=== PATIENT | female | born 1970 | race Two or more races ===

== ENCOUNTER 2018-10-27 17:10 | Inpatient (IN) | payer MEDICAID, OTHER ==
--- NOTE | 2018-10-27 17:46 | EDPHY ---
HPI/HX/ROS/PE/MDM Narrative: CHIEF COMPLAINT: Chest pressure HISTORY OF PRESENT ILLNESS: The patient is a Afghan-speaking 47 y/o female with a history of acid reflux who arrives with her complaining of almost persistent chest pressure since Wednesday, 2 days ago. Over the last 2 days she has had chest discomfort the majority of the time, although there have been some periods which she has been pain-free. She recently returned from a trip to [facility] on Wednesday, which was a 12-hour drive for each leg of the journey. Upon returning home, she noticed a swollen varicose vein on her left medial thigh that has since resolved, but concerned her for a blood clot. Her left lower leg seems slightly swollen to her now. On the same day she returned home she also developed chest pressure that has remained almost constant since onset with only a few brief dips in pain. She rates it at a 7/10 in severity currently and describes radiation to her back. Nothing seems to make her pain better or worse. This pain feels distinct from her episodes of reflux, which are usually lower in her chest and burning and sharp in sensation. She has been generally fatigued over the last day as well and currently feels anxious. She denies history of hypertension, diabetes, hypercholesterolemia, smoking history, or cardiac disease nonsmoker. She mentions her menstrual period is late this month. She takes a daily baby aspirin. No fever, chills, shortness of breath, palpitations, vomiting, diarrhea, urinary complaints, headache, lightheadedness. REVIEW OF SYSTEMS: Aside from elements discussed in the HPI, a comprehensive 10-point review of systems was reviewed and is negative. PAST MEDICAL HISTORY: Reflux - omeprazole, varicose veins. Family history of early coronary artery disease. SOCIAL HISTORY: Afghan-speaking. Nonsmoker, no marijuana use, no alcohol use. at bedside. VITAL SIGNS: Reviewed by me GENERAL: Well-developed, well-nourished, holding her upper chest. Reports this where the discomfort is. HEENT: Atraumatic. Eyes: No icterus, no injection. Mouth: moist mucous membranes. No erythema or lesions. Neck: supple with no adenopathy. LUNGS: Clear to auscultation bilaterally, no wheezes, rhonchi or rales. CARDIAC: Regular rate and rhythm, no rubs, murmurs or gallops. CHEST: Mild tenderness over sternum. Breath sounds are clear bilaterally. ABDOMEN: Soft, nontender, nondistended, bowel sounds normal. BACK: No CVA tenderness. EXTREMITIES: No trauma. No edema. Left lower leg increased circumference compared to right. Range of motion is normal throughout. NEURO: Alert and oriented, grossly nonfocal. SKIN: Warm and dry, no rash. PSYCHIATRIC: Normal mentation, no agitation. Portions of this note were transcribed by a medical coding instructor. I personally performed a history, physical exam, medical decision making, and confirmed accuracy of information the transcribed note. ED Course: This is a 47 y/o female with a history of acid reflux who presents with a two- day history of chest pressure following a long drive between [place], [place], and here earlier this week. She is well-appearing on exam and not tachycardic nor hypoxemic. Patient does have a family history a court her artery disease. Plan for IV, labs, EKG, chest x-ray, left leg US. GI cocktail for pain. The 12 lead EKG was interpreted by myself. Sinus mechanism. Flipped T wave in lead III. See hard copy and/or "tracemaster" electronic copy for interpretation. Compared with [facility] EKG patient brought with her, there was a downsloping ST segment in V5 on their EKG earlier today. Chest x-ray: negative. Left leg US: No DVT. POC Troponin is negative. HEART SCORE: History: 1 EK Age: 1 Risk Factors: 0 Troponin: 0 The patient has a heart score 3. History was deemed moderately suspicious secondary to the complaints of pressure the substernal region. Thw EKG received a score of 1 secondary to nonspecific repolarization abnormalities with T-wave inversions in lead [address] depression lead V4 on the EKG from [facility]. Patient's age at 47 received a score of 1. (Note: On the history obtained from the admitting service, the patient does have a family history of coronary artery disease which would increase her risk factors to 1 and increase the heart score to 4.) Patient had a negative troponin in the emergency department. Chest x-ray was normal. D-dimer was negative. Ultrasound left leg demonstrates no DVT. Patient had minimal relief with a GI cocktail. Patient will be observed in the emergency department for 4 hr to have a repeat troponin and EKG. 2132: Repeat EKG is similar to prior. Repeat POC troponin is negative. Reassessed patient and discussed findings. She now tells me she had an echocardiogram in September and was told they wanted a follow up stress test, which she has not yet done. She also has an upcoming shoulder surgery next week. 2214: Consulted with Dr. Barrera, cardiology. He recommends admission for stress test. The patient was seen in the emergency department by Dr. Yadira Delgado. At this time, the patient's positive family history was identified. Patient will be admitted to the hospital for chest discomfort, rule out acute coronary syndrome. MDM: After history and physical examination, the differential for chest pain was considered, including but not limited to, myocardial ischemia, acute coronary syndrome, pulmonary embolus, chest wall pain, pleural inflammation, GI causes, and pulmonary infectious causes. - Data Points Imaging Results: Imaging Impressions Chest X-Ray 10/27/18 17:50 Impression: 1. Clear lungs. No acute process. 2. Minimal degenerative disk disease unchanged. Extremity Venous Study 10/27/18 17:51 Impression: No evidence of deep vein thrombosis. Findings discussed with Deirdre Rick MD 10/27/2018 at 18:22. Imaging: Discussed imaging studies w/ call out clerk Radiologist, I viewed and interpreted images myself Laboratory Results: Laboratory Results 10/27/18 17:35 10/27/18 17:35 10/27/18 10/27/18 10/27/18 21:35 17:43 17:35 WBC RBC Hgb Hct MCV MCH MCHC RDW Plt Count MPV Neut % (Auto) Lymph % (Auto) Cataño % (Auto) Eos % (Auto) Baso % (Auto) Nucleat RBC Rel Count Absolute Neuts (auto) Absolute Lymphs (auto) Absolute Monos (auto) Absolute Eos (auto) Absolute Basos (auto) Absolute Nucleated RBC Immature Gran % Immature Gran # D-Dimer Sodium Potassium Chloride Carbon Dioxide Anion Gap BUN Creatinine Estimated GFR Glucose Calcium POC Troponin I 0.00 ng/mL ng/mL 0.00 ng/mL ng/mL (0.00-0.08) (0.00-0.08) Lipase Beta HCG, Qual NEGATIVE 10/27/18 10/27/18 10/27/18 17:35 17:35 17:35 WBC 6.93 10^3/uL 10^3/uL (3.80-9.50) RBC 4.61 10^6/uL 10^6/uL (4.18-5.33) Hgb 13.4 g/dL g/dL (12.6-16.3) Hct 40.0 % % (38.0-47.0) MCV 86.8 fL fL (81.5-99.8) MCH 29.1 pg pg (27.9-34.1) MCHC 33.5 g/dL g/dL (32.4-36.7) RDW 14.7 % % (11.5-15.2) Plt Count 267 10^3/uL 10^3/uL (150-400) MPV 11.5 fL fL (8.7-11.7) Neut % (Auto) 64.0 % % (39.3-74.2) Lymph % (Auto) 26.0 % % (15.0-45.0) Cataño % (Auto) 7.9 % % (4.5-13.0) Eos % (Auto) 1.3 % % (0.6-7.6) Baso % (Auto) 0.7 % % (0.3-1.7) Nucleat RBC Rel Count 0.0 % % (0.0-0.2) Absolute Neuts (auto) 4.43 10^3/uL 10^3/uL (1.70-6.50) Absolute Lymphs (auto) 1.80 10^3/uL 10^3/uL (1.00-3.00) Absolute Monos (auto) 0.55 10^3/uL 10^3/uL (0.30-0.80) Absolute Eos (auto) 0.09 10^3/uL 10^3/uL (0.03-0.40) Absolute Basos (auto) 0.05 10^3/uL 10^3/uL (0.02-0.10) Absolute Nucleated RBC 0.00 10^3/uL 10^3/uL (0-0.01) Immature Gran % 0.1 % % (0.0-1.1) Immature Gran # 0.01 10^3/uL 10^3/uL (0.00-0.10) D-Dimer 0.38 ug/mLFEU ug/mLFEU (0.00-0.50) Sodium 140 mEq/L mEq/L (135-145) Potassium 3.6 mEq/L mEq/L (3.5-5.2) Chloride 110 mEq/L mEq/L (97-110) Carbon Dioxide 22 mEq/l mEq/l (22-31) Anion Gap 8 mEq/L mEq/L (6-14) BUN 11 mg/dL mg/dL (7-23) Creatinine 0.6 mg/dL mg/dL (0.6-1.0) Estimated GFR > 60 Glucose 107 mg/dL H mg/dL (70-100) Calcium 9.5 mg/dL mg/dL (8.5-10.4) POC Troponin I Lipase 145 IU/L IU/L (23-300) Beta HCG, Qual Medications Given: Discontinued Medications Al Hydroxide/Mg Hydroxide (Maalox Susp) 30 ml PO ONCE ONE Stop: 10/27/18 17:50 Last Admin: 10/27/18 18:18 Dose: 30 ml Hydromorphone HCl (Dilaudid) 0.5 mg IVP EDNOW ONE Stop: 10/27/18 20:04 Last Admin: 10/27/18 20:14 Dose: 0.5 mg Hyoscyamine Sulfate (Levsin, Hyomax-Sl) 0.25 mg PO ONCE ONE Stop: 10/27/18 17:50 Last Admin: 10/27/18 18:17 Dose: 0.25 mg Sodium Chloride (Ns) 500 mls @ 1,000 mls/hr IV EDNOW ONE PRN Reason: Protocol Stop: 10/27/18 18:18 Last Admin: 10/27/18 18:17 Dose: 500 mls Ketorolac Tromethamine (Toradol) 15 mg IVP ONCE ONE Stop: 10/27/18 18:35 Last Admin: 10/27/18 18:43 Dose: 15 mg Lidocaine (Lidocaine 2% Viscous) 15 ml PO ONCE ONE Stop: 10/27/18 17:50 Last Admin: 10/27/18 18:18 Dose: 15 ml Point of Care Test Results: Chemistry 10/27/18 10/27/18 21:35 17:43 POC Troponin I 0.00 ng/mL ng/mL 0.00 ng/mL ng/mL (0.00-0.08) (0.00-0.08) General Time Seen by Provider: 10/27/18 17:22 Initial Vital Signs: Initial Vital Signs Temperature (C) 36.7 C 10/27/18 17:14 Heart Rate 102 H 10/27/18 17:14 Respiratory Rate 17 10/27/18 17:14 Blood Pressure 174/99 H 10/27/18 17:14 O2 Sat (%) 99 10/27/18 17:14 O2 Delivery Mode Room Air Allergies/Adverse Reactions: No Known Allergies Allergy (Unverified 10/27/18 17:13) Home Medications: Medication Instructions Recorded Aspirin 325 mg (*) 10/27/18 Omeprazole 10/27/18 Departure - Departure Disposition: [facility] Inpatient Acute Clinical Impression: Chest pressure, EKG, abnormal Condition: Good Report Scribed for: Deirdre Rick Report Scribed by: Amber Wilkerson Date of Report: 10/27/18 Time of Report: 18:01
[2018-10-27] MEDS ORDERED: MAG HYDROX/AL HYDROX/SIMETH 30 ML UDCUP PO ONE (17:49)
[2018-10-27] MEDS ORDERED: HYOSCYAMINE SULFATE 0.125 MG TAB PO ONE (17:49)
[2018-10-27] MEDS ORDERED: LIDOCAINE 2% VISCOUS 15 ML UDCUP PO ONE (17:49)
[2018-10-27] MEDS ORDERED: NS 500 ML IV ONE (17:49)
[2018-10-27 17:58] LABS: PLATELET COUNT 267 10^3/uL (150-400)
[2018-10-27] MEDS ORDERED: KETOROLAC 15 MG/1 ML SDV IVP ONE (18:34)
[2018-10-27] MEDS ORDERED: HYDROmorphONE/DILAUDID 2 MG/ML INJ IVP ONE (20:03)
[2018-10-27] MEDS ORDERED: ONDANSETRON DISINTEGRATING 4 MG TAB PO PRN (22:42)
[2018-10-27] MEDS ORDERED: ONDANSETRON 4 MG/2 ML VIAL IVP PRN (22:42)
--- NOTE | 2018-10-27 23:58 | PDGENHP ---
History and Physical - Chief Complaint Chest pain - History of Present Illness 47 yo F w/ hx of GERD presents with chest pain. The patient tells me she has had 3 days of central chest pressure. This radiates to her back. She has also noted some dyspnea on exertion over this period. The pain is not reproducible on exam. She went to her PCP today and had some inferior T wave changes on ECG so she was sent to the ED for evaluation. Her ECG has improved in our ED and troponin levels are negative. She has a L shoulder surgery planned for Wednesday and cardiology (contacted in the ED) thought it was necessary to perform risk stratification prior to this. She is chest pain free at the time of my evaluation and has no prior personal history of cardiac disease; she does have significant family history, however. Case discussed with ED physician Dr. Rick; records reviewed and summarized above. History Information - Allergies/Home Medication List Allergies/Adverse Reactions: No Known Allergies Allergy (Unverified 10/27/18 17:13) Home Medications: Aspirin 325 mg (*) 10/27/18 [Last Taken Unknown] Omeprazole 10/27/18 [Last Taken Unknown] I have personally reviewed and updated: family history, medical history - Past Medical History GERD - Surgical History Reports: appendectomy, cholecystectomy Additional surgical history: BTL - Family History Positive for: CAD Additional family history: Valvular heart disease in her sister - Social History Smoking Status: Never smoked Review of Systems Review of Systems: ROS: 10pt was reviewed & negative except for what was stated in HPI & below Physical Exam Physical Exam: Temp Pulse Resp BP Pulse Ox 36.9 C 82 16 118/74 98 10/27/18 23:31 10/27/18 23:31 10/27/18 23:31 10/27/18 23:31 10/27/18 23:31 Constitutional: no apparent distress, not in pain Eyes: PERRL, EOMI Ears, Nose, Mouth, Throat: moist mucous membranes, no oral mucosal ulcers Cardiovascular: regular rate and rhythym, no murmur, rub, or gallop Respiratory: no respiratory distress, clear to auscultation Gastrointestinal: normoactive bowel sounds, soft, non-tender abdomen Skin: warm, normal color Musculoskeletal: full muscle strength, no muscle tenderness Neurologic: AAOx3, CN II-XII Intact Psychiatric: interacting appropriately, not anxious Lab Data & Imaging Review 10/27/18 17:35 10/27/18 17:35 WBC 6.93 10^3/uL (3.80-9.50) 10/27/18 17:35 RBC 4.61 10^6/uL (4.18-5.33) 10/27/18 17:35 Hgb 13.4 g/dL (12.6-16.3) 10/27/18 17:35 Hct 40.0 % (38.0-47.0) 10/27/18 17:35 MCV 86.8 fL (81.5-99.8) 10/27/18 17:35 MCH 29.1 pg (27.9-34.1) 10/27/18 17:35 MCHC 33.5 g/dL (32.4-36.7) 10/27/18 17:35 RDW 14.7 % (11.5-15.2) 10/27/18 17:35 Plt Count 267 10^3/uL (150-400) 10/27/18 17:35 MPV 11.5 fL (8.7-11.7) 10/27/18 17:35 Neut % (Auto) 64.0 % (39.3-74.2) 10/27/18 17:35 Lymph % (Auto) 26.0 % (15.0-45.0) 10/27/18 17:35 Deuel % (Auto) 7.9 % (4.5-13.0) 10/27/18 17:35 Eos % (Auto) 1.3 % (0.6-7.6) 10/27/18 17:35 Baso % (Auto) 0.7 % (0.3-1.7) 10/27/18 17:35 Nucleat RBC Rel Count 0.0 % (0.0-0.2) 10/27/18 17:35 Absolute Neuts (auto) 4.43 10^3/uL (1.70-6.50) 10/27/18 17:35 Absolute Lymphs (auto) 1.80 10^3/uL (1.00-3.00) 10/27/18 17:35 Absolute Monos (auto) 0.55 10^3/uL (0.30-0.80) 10/27/18 17:35 Absolute Eos (auto) 0.09 10^3/uL (0.03-0.40) 10/27/18 17:35 Absolute Basos (auto) 0.05 10^3/uL (0.02-0.10) 10/27/18 17:35 Absolute Nucleated RBC 0.00 10^3/uL (0-0.01) 10/27/18 17:35 Immature Gran % 0.1 % (0.0-1.1) 10/27/18 17:35 Immature Gran # 0.01 10^3/uL (0.00-0.10) 10/27/18 17:35 D-Dimer 0.38 ug/mLFEU (0.00-0.50) 10/27/18 17:35 Sodium 140 mEq/L (135-145) 10/27/18 17:35 Potassium 3.6 mEq/L (3.5-5.2) 10/27/18 17:35 Chloride 110 mEq/L (97-110) 10/27/18 17:35 Carbon Dioxide 22 mEq/l (22-31) 10/27/18 17:35 Anion Gap 8 mEq/L (6-14) 10/27/18 17:35 BUN 11 mg/dL (7-23) 10/27/18 17:35 Creatinine 0.6 mg/dL (0.6-1.0) 10/27/18 17:35 Estimated GFR > 60 10/27/18 17:35 Glucose 107 mg/dL (70-100) H 10/27/18 17:35 Calcium 9.5 mg/dL (8.5-10.4) 10/27/18 17:35 POC Troponin I 0.00 ng/mL (0.00-0.08) 10/27/18 21:35 Lipase 145 IU/L (23-300) 10/27/18 17:35 Beta HCG, Qual NEGATIVE 10/27/18 17:35 Imaging Review: Imaging Impressions Chest X-Ray 10/27/18 17:50 Impression: 1. Clear lungs. No acute process. 2. Minimal degenerative disk disease unchanged. Extremity Venous Study 10/27/18 17:51 Impression: No evidence of deep vein thrombosis. Findings discussed with Deirdre Rick MD 10/27/2018 at 18:22. Visualized and Interpreted Chest x-ray results: Yes Chest X-Ray results: no infiltrate Visualized and Interpreted EKG results: Yes EKG Interpretation: Positive for: normal sinsus rhythm, NS ST wave abnormalities Assessment & Plan Assessment: 47 yo F w/ hx of GERD presents with chest pain. Plan: 1. Chest pain - Present for three days with radiation to her back and associated with dyspnea on exertion. Dynamic ECG changes were noted between PCP' s office and our ECG here (personally reviewed/interpreted), which demonstrates only non-specific T wave abnormalities. HEART score of 4 denotes need for further evaluation. - Admit to PCU for observation - Monitor on telemetry, trend cardiac enzymes - ECG, NTG PRN for chest pain - Treadmill stress test ordered for the morning - She underwent an echocardiogram 09/29/18 w/ [facility] (I do not have access to results) so I will not repeat today 2. GERD - Continue PPI Diet - NPO @ MO Code - Full Ppx - LMWH Dispo - Admit under observation status
[2018-10-28] MEDS ORDERED: ASPIRIN 81 MG CHEWABLE TAB PO ONE (00:01)
[2018-10-28] MEDS ORDERED: NITROGLYCERIN 0.4 MG BTL SL PRN (00:04)
[2018-10-28 04:58] LABS: PLATELET COUNT 224 10^3/uL (150-400)
[2018-10-28] MEDS ORDERED: METOPROLOL TARTRATE 50 MG TAB PO ONE ×2 (09:14→13:09)
--- NOTE | 2018-10-28 10:04 | CPEKG ---
Test Reason : OPEN Blood Pressure : / mmHG Vent. Rate : 082 BPM Atrial Rate : 082 BPM P-R Int : 157 ms QRS Dur : 081 ms QT Int : 382 ms P-R-T Axes : 059 060 034 degrees QTc Int : 446 ms Sinus rhythm Probable left atrial enlargement Anteroseptal infarct, age indeterminate Confirmed by Milo Tipton ([id number]) on 10/28/2018 10:03:09 AM Referred By: Confirmed By:Milo Tipton
[2018-10-28] MEDS ORDERED: IOPAMIDOL (ISOVUE-370) 150 ML BTL IV ONE (15:07)
--- NOTE | 2018-10-28 15:25 | ASMTCMCOM ---
CM Note CM Note Notes: 10/28/2018 Case Management Note Discussed pt during rounds this morning. Pt admitted for chest pain. CT angiogram ordered. There are no therapy evals ordered at this time. Pt was screened by [employer] for Medicaid this morning. There are no case management d/c needs identified d/t pt age, marital status and employment status. Pt was independent with ADLs prior to admission. Case Management d/c poc: Independent with follow up as directed. Case Management available if needs change. Date Signed: 10/28/2018 03:24 PM Electronically Signed By:Birgit Glez RN
[2018-10-28] MEDS ORDERED: METOPROLOL TARTRATE 5 MG/5 ML INJ ONE (15:57)
--- NOTE | 2018-10-28 18:45 | HOSPPROG ---
Hospitalist Progress Note Assessment/Plan: DIAGNOSES: * chest pain at rest, resolved * will out for myocardial infarction * heart score of 4 * shoulder pain, with planned left shoulder surgery in 4 days at another facility She has rule out for [place], and she has had no arrhythmia, heart failure symptoms, or abnormal vital signs of concern. Plan had been to do a CT coronary angio today but her heart rate was too fast even though we had given her some metoprolol. I reviewed with Dr. Geovanny cee he 0 this evening who had recommended that we do the CT angio instead of the treadmill stress test. He is still recommending that we go with a CT angio of coronaries but with higher dose of beta-alexis and will plan to do that tomorrow. PLANS: * Continue monitoring coordinator * Metoprolol 100 mg p.o. Tonight * Follow blood pressure and pulse closely, adjust medication as needed for heart rate sufficiently slow to do the CT angio * CT angio coronaries tomorrow * Will need to changed inpatient as were having to hold her over tomorrow for control of heart rate and completion of her risk stratification testing here SUBJECTIVE: Feels fine at this time, pain is resolved Eating well, no shortness of breath, no nausea, no anginal-type symptoms, no heart failure symptoms, no palpitations OBJECTIVE Vitals reviewed: All in normal range Contracting Specialist, my review: All sinus Exam: alert oriented skin warm dry color ok resps not labored lungs clear BSs heart regular abd soft nondistended nontender, bowel sounds present limbs warm, no edema iv site ok Lab data: Troponins all normal Other labs all stable Objective: Vital Signs Temp Pulse Resp BP Pulse Ox 36.6 C 66 18 140/85 H 98 10/28/18 17:21 10/28/18 17:21 10/28/18 17:21 10/28/18 17:21 10/28/18 17:21 Laboratory Results 10/28/18 04:20 10/28/18 04:20 10/27/18 10/28/18 10/29/18 06:59 06:59 06:59 Intake Total 1000 Balance 1000 ICD10 Worksheet Patient Problems: Problems Problem Status Onset Chest pressure Acute EKG, abnormal Acute
[2018-10-28] MEDS: ENOXAPARIN 40 MG/0.4 ML SYR SC SCH (19:16)
[2018-10-28] MEDS ORDERED: METOPROLOL TARTRATE 50 MG TAB PO SCH (21:00)
[2018-10-28] MEDS: METOPROLOL TARTRATE 100 MG TAB PO SCH (21:12)
[2018-10-29] MEDS: ACETAMINOPHEN 325 MG TAB PO PRN ×2 (01:30→22:21)
[2018-10-29] MEDS: METOPROLOL TARTRATE 100 MG TAB PO SCH (08:48)
[2018-10-29] MEDS: ENOXAPARIN 40 MG/0.4 ML SYR SC SCH (08:49)
[2018-10-29] MEDS ORDERED: IOPAMIDOL (ISOVUE-370) 150 ML BTL IV ONE (11:13)
[2018-10-29] MEDS ORDERED: METOPROLOL TARTRATE 5 MG/5 ML INJ IV ONE ×2 (12:30→14:00)
[2018-10-29] MEDS ORDERED: METOPROLOL TARTRATE 5 MG/5 ML INJ ONE (13:09)
--- NOTE | 2018-10-29 18:15 | HOSPPROG ---
Hospitalist Progress Note Assessment/Plan: DIAGNOSES: * chest pain at rest, resolved * will out for myocardial infarction * heart score of 4 * shoulder pain, with planned left shoulder surgery in 4 days at another facility She has rule out for [place], and she has had no arrhythmia, heart failure symptoms, or abnormal vital signs of concern. Again today with attempt at coronary CT angio the patient had faster heart rates prohibiting getting this test done despite higher dose of beta-alexis. She seemed to feel fairly nervous with attempts at the test. I reviewed again in detail with cardiology team and our plan will be to change to doing a treadmill test with myocardial perfusion imaging. We are unable to get a tracer dose to do the test today so this be done tomorrow morning here. PLANS: * Continue secretary to the vice president * Stressed with myocardial perfusion imaging tomorrow SUBJECTIVE: Continues to feel well without angina or shortness of breath or nausea Some anxiety particularly during attempts at getting CTs done OBJECTIVE Vitals reviewed: All in normal range, though notably her heart rate again got up to the range of 80 as she attempted to have CT coronary angio done Gastroenterology Technician, my review: All sinus Exam: alert oriented skin warm dry color ok resps not labored lungs clear BSs heart regular abd soft nondistended nontender, bowel sounds present limbs warm, no edema iv site ok Objective: Vital Signs Temp Pulse Resp BP Pulse Ox 36.6 C 69 18 114/78 99 10/29/18 15:45 10/29/18 15:45 10/29/18 15:45 10/29/18 15:45 10/29/18 15:45 Laboratory Results 10/28/18 04:20 10/28/18 04:20 10/28/18 10/29/18 10/30/18 06:59 06:59 06:59 Intake Total 1000 350 850 Balance 1000 350 850 ICD10 Worksheet Patient Problems: Problems Problem Status Onset Chest pressure Acute EKG, abnormal Acute
--- NOTE | 2018-10-29 20:05 | PDMN ---
Medical Necessity Medical necessity: MCG: M40 angina- pt r/o AL attempt at coronary CT results in accelerated HR prohibiting test completion, treadmill test with myocardial perfusion imaging. pend. status changed to INPT 10/28/18 for ongoing monitoring and eval needed of angina > 2 MN.
--- NOTE | 2018-10-29 22:48 | CPEKG ---
Test Reason : OPEN Blood Pressure : / mmHG Vent. Rate : 078 BPM Atrial Rate : 078 BPM P-R Int : 158 ms QRS Dur : 083 ms QT Int : 402 ms P-R-T Axes : 063 051 026 degrees QTc Int : 458 ms Sinus rhythm Probable left atrial enlargement Confirmed by Deirdre Rick ([id number]) on 10/29/2018 10:48:15 PM Referred By: Confirmed By:Deirdre Rick
--- NOTE | 2018-10-29 22:48 | CPEKG ---
Test Reason : OPEN Blood Pressure : / mmHG Vent. Rate : 094 BPM Atrial Rate : 094 BPM P-R Int : 160 ms QRS Dur : 080 ms QT Int : 345 ms P-R-T Axes : 058 056 016 degrees QTc Int : 432 ms Sinus rhythm Nonspecific T wave abnormality Confirmed by Deridre Rick ([id number]) on 10/29/2018 10:47:42 PM Referred By: Confirmed By:Deirdre Rick
[2018-10-30] MEDS: PANTOPRAZOLE SODIUM 40 MG TAB PO SCH (08:46)
[2018-10-30] MEDS: ENOXAPARIN 40 MG/0.4 ML SYR SC SCH (08:46)
--- NOTE | 2018-10-30 10:36 | PDCARST ---
CAR Stress Test Results Type of Stress Test: MPI ETT Indication: Atypical chest pain Description of Procedure: Consent was obtained and the patient was placed on continuous telemetry, her resting ECG demonstrates normal sinus rhythm with nonspecific ST-T wave changes. Treadmill stress testing was initiated using Liban protocol. She reached max exertion during stage II at 169 beats per minute (97% target). BP at peak exertion was 186/94. She had no chest discomfort during the test, although she endorsed mild lightheadedness at peak exertion. SpO2 was 89% at peak exertion. Lightheadedness resolved within 1 min during recovery. No arrhythmia and no significant ST-T wave changes noted during exertion or in recovery. Impression: No significant ST-T wave abnormalities noted, no arrhythmia at peak exertion or during recovery. Barton treadmill score = 4.4 (moderate cardiovascular risk). Conclusion: Await and correlate with nuclear images at this time.
--- NOTE | 2018-10-30 20:04 | HOSPPROG ---
Hospitalist Progress Note Assessment/Plan: DIAGNOSES: * chest pain at rest, resolved but some very brief recurrences today * ruled out for myocardial infarction * heart score of 4 * Abnormal Nuc Stress with Barton 4.4 (mod risk) on treadmill and mutiple significant appearing perfusion abnormalities on stress images * chronic shoulder pain, with planned left shoulder surgery in 4 days at another facility Has ruled out for [place] and no CHF, but very frustrating attempts at getting risk stratification studies completed (unable to get Coronary CT angio two days martir row due to HR too fast despite dosing metopr up to 100 bid), and now abnormal stress myocard perfusion images but unable to get rest study done today. She has planned outpt shoulder surgery on 11/01. Will try to get her rest images done here early tomorrow am, and will keep NPO p MN tonight in case she needs angio and can do that tomorrow PLANS: * Continue telemetry monitor * rest nuc images in am * npo in case angio indicated * I reviewed all above in detail w pt and * will need to make recommendations re: ? proceed w surgery on 11/01. Will have cardiology see to weigh in on this SUBJECTIVE: Today had a couple of very brief episode of chest pressure and nausea (lasting seconds each) otherwise feels well Had stress test today with Braton 4.4 and abnormal nuke images OBJECTIVE Vitals reviewed: All in normal range, though notably her heart rate again got up to the range of 80 as she attempted to have CT coronary angio done Financial Counselor, my review: All sinus Exam: alert oriented skin warm dry color ok resps not labored lungs clear BSs heart regular abd soft nondistended nontender, bowel sounds present limbs warm, no edema iv site ok Stress Test: treadmill result Barton 4.4 (moderate risk) due to nonspecific ST abnormalities Nuke Myocard Perdusion images (i reviewed images): significant perfusion defects in mulitple territories (resting images needed but unable to obtain today which is wednesday due to dose availability) Objective: Vital Signs Temp Pulse Resp BP Pulse Ox 36.6 C 80 18 119/84 H 97 10/30/18 16:00 10/30/18 16:00 10/30/18 16:00 10/30/18 16:00 10/30/18 16:00 10/29/18 10/30/18 10/31/18 06:59 06:59 06:59 Intake Total 350 1000 860 Balance 350 1000 860 ICD10 Worksheet Patient Problems: Problems Problem Status Onset Chest pressure Acute EKG, abnormal Acute
[2018-10-31] MEDS: PANTOPRAZOLE SODIUM 40 MG TAB PO SCH (12:09)
[2018-10-31] MEDS: ENOXAPARIN 40 MG/0.4 ML SYR SC SCH (12:09)
[2018-10-31 12:13] VITALS: BP 129/93
--- NOTE | 2018-10-31 13:47 | ASDISCHSUM ---
Discharge Information Plan Status:Home with No Needs Medically Cleared to Leave:10/30/2018 Discharge Date:10/30/2018 CM D/C Disposition:Home, Routine, Self-Care ADT D/C Disposition:Home, Routine, Self-Care Projected Discharge Date:10/30/2018 Transportation at D/C: Discharge Delay Reason: Follow-Up Date:10/30/2018 Discharge Slot: Final Diagnosis: Placement Information Patient Contact Information Contact Name:KATELYN Relationship: Address:[address] Work Phone: City:[place] Alternate Phone: State/Zip Code:[place] [address] Email: Financial Information Financial Class:Self-Pay Primary Plan Desc:SP UNINSURED Primary Plan Number:N/A Secondary Plan Desc: Secondary Plan Number: Assessment Information LACE LACE Length of stay for Answers: 2 days current admission Acuity / Level of Answers: Yes Care: Did the patient have an inpatient admission? Comorbidities - select Answers: Other Notes: GERD all that apply # of Emergency department Answers: 1-2 visits in the last 6 months Score: 7 Date Signed: 10/31/2018 01:45 PM Electronically Signed By:Birgit Glez RN [facility] CM Progress Note CM Note CM Note Notes: 10/28/2018 Case Management Note Discussed pt during rounds this morning. Pt admitted for chest pain. CT angiogram ordered. There are no therapy evals ordered at this time. Pt was screened by [employer] for Medicaid this morning. There are no case management d/c needs identified d/t pt age, marital status and employment status. Pt was independent with ADLs prior to admission. Case Management d/c poc: Independent with follow up as directed. Case Management available if needs change. Date Signed: 10/28/2018 03:24 PM Electronically Signed By:Birgit Glez RN Case Management Discharge Plan Note Case Management Discharge Discharge Order Complete? Answers: Yes Patient to Obtain Answers: Independently Medications Transportation Arranged Answers: Family/Friends Discharge Comments Notes: 10/31/2018 Case Management Note Pt to discharge independent with follow up as directed. Date Signed: 10/31/2018 01:46 PM Electronically Signed By:Birgit Glez RN Intervention Information
--- NOTE | 2018-10-31 14:15 | PDDCSUM ---
Discharge Summary Discharge Summary: Sue Peres is a 47 year old female admitted with chest pain. she underwent a myocardial perfusion imaging study with lexiscan. She was found to have no regional wall motion abnormalities and a normal stress test with normal heart function. Cardiology saw the patient and felt that her symptoms may have been due to GERD or acid reflux. She was scheduled to ahve a shoulder surgery the day after discharge. Cardiology felt that she able to proceed to surgery from their standpoint. she was discharged on a PPI to follow up with cardiology and her PCP. Discharge diagnosis chest pain GERD Medications Pantoprazole
== END 2018-10-31 13:58 | disposition home or self-care (01) | DRG 392 ==
LOC: F2W 23:50 → OBSVTOIN 10-28 18:45
PROVIDERS: ADMIT Internal Medicine; ATTEND Internal Medicine
DX: K21.9 Gastro-esophageal reflux disease without esophagitis (principal); M25.519 Pain in unspecified shoulder
CPT/HCPCS: 84484-ER; 96374; A9500; G0378; J1170; J1650; J1885; Q9967

== ENCOUNTER → 2019-04-15 | Outpatient (CLI) | payer MEDICAID | LOC: FIMAGING 12:59 ==